=== PATIENT | female | born 1950 | race Caucasian/White ===

== ENCOUNTER 2016-10-14 12:55 | Emergency (ER) | payer MEDICARE, MEDICAID ==
[~2016-10-14] VITALS: Ht 149.9 cm; Wt 54.0 kg
[~2016-10-14 12:55] MED LIST: ALBU18HF2; CEPH-569; IBUP-1510; MECL-109
[2016-10-14 13:14] VITALS: BP 150/71
[2016-10-14] MEDS ORDERED: FLUORESCEIN SODIUM 1MG/STRIP RIGHTEYE ONE (14:00)
[2016-10-14] MEDS ORDERED: PHENYLEPHRINE 2.5% OPHTH 15 DROP/ML BOTTLE BOTHEYE ONE (14:00)
[2016-10-14] MEDS ORDERED: TETRACAINE 0.5% OPHTH DROPS 4ML RIGHTEYE ONE (14:00)
== END 2016-10-14 15:34 | disposition home or self-care (01) ==
LOC: ER 14:19
DX: H57.9 Unspecified disorder of eye and adnexa (principal); E11.9 Type 2 diabetes mellitus without complications; I10 Essential (primary) hypertension; E78.00 Pure hypercholesterolemia, unspecified
CPT/HCPCS: 99283